=== PATIENT | male | born 2000 | race Caucasian/White ===

== ENCOUNTER 2020-05-02 22:29 | Emergency (ER) | payer OTHER ==
[~2020-05-02] VITALS: Ht 170.2 cm; Wt 71.0 kg
[2020-05-02] MEDS ORDERED: FAMOTIDINE 20MG TABLET PO ONE (23:15)
[2020-05-02] MEDS ORDERED: MAGNESIUM/ALUMINUM HYDROXIDE/SIMETHICONE 30ML UDC PO ONE (23:15)
[2020-05-02] MEDS ORDERED: VISCOUS LIDOCAINE 2% 15 ML UDC MM PRN (23:15)
[2020-05-02 23:53] LABS: BASOPHILS % 0.5 % (0.0-2.0); EOSINOPHILS % 2.8 % (0.0-5.0); HEMATOCRIT. 47.8 % (42.0-52.0); HEMOGLOBIN. 15.6 g/dL (14.0-18.0); LYMPHOCYTES % 28.5 % (20.0-50.0); MEAN CORPUSCULAR HEMOGLOBIN 29.4 pg (28.0-32.0); MEAN CORPUSCULAR VOLUME 90.3 fL (80.0-94.0); MEAN PLATELET VOLUME 9.8 fl (7.4-10.4); MONOCYTES % 8.1 % (2.0-8.0); NEUTROPHILS % 60.1 % (40.0-76.0); PLATELET 224 x1000/uL (130-400); RED BLOOD CELL COUNT 5.29 mill/uL (4.7-6.1); RED CELL DISTRIBUTION WIDTH 13.7 % (11.6-14.6)
[2020-05-02 23:54] LABS: CHLORIDE 104 mEq/L (98-107)
[2020-05-02] MEDS ORDERED: OMEP20TA2 MT (23:58)
[2020-05-02] MEDS ORDERED: MAG-93 MT (23:58)
[2020-05-03 00:17] VITALS: BP 119/80
== END 2020-05-03 00:35 | disposition home or self-care (01) ==
LOC: ER 22:29
DX: R10.13 Epigastric pain (principal); Z72.89 Other problems related to lifestyle; Z71.41 Alcohol abuse counseling and surveillance of alcoholic; F12.90 Cannabis use, unspecified, uncomplicated; Z82.49 Family history of ischemic heart disease and other diseases of the circulatory system; Z83.3 Family history of diabetes mellitus
CPT/HCPCS: 36415; 80053; 85025; 99284